=== PATIENT | female | born 1965 | race Caucasian/White ===

== ENCOUNTER 2025-03-27 08:12 | Emergency (ER) | payer BC, SELFPAY ==
--- OUTSIDE RECORDS SUMMARY | 2023-03-09 07:54 | XMS_ITS | Encounter Summary ---
Author Organization [facility] Healthcare Address [address] [place] [address] Care Team Providers Care Plant Safety Leader Name Role Phone Adolfo Arroyo MD Primary Care Provider [phone] Encounter Details Date Type Department Care Team (Late st Contact Info) Description 03/09/2023 7:54 AM CDT Hospital Encounter [facility] Medical Group Orthopedics and Sports Medicine [address] [place] [id number] Social History Tobacco Use Types Packs/Day Years Used Date Smoking Tobacco: Every Day Cigarettes Smokeless Tobacco: Former Comments:0.5 ppd Alcohol Use Standard Drinks/Week Comments Yes 0 (1 standard drink = 0.6 oz pur e alcohol) AUDIT-C Answer Date Recorded Q1: How often do you have a drink containing alc ohol? Monthly or less 03/20/2024 Q2: How many drinks containi ng alcohol do you have on a typical day when you are drinking? 1 or 2 03/20/2024 Q3: How often do you have si x or more drinks on one occasion? Never 03/20/2024 Personal Safety Answer Date Recorded Have you ever been in or are you currently in a harmful physical or emotional relationship or is someone making you feel afraid or unsafe? Denies 03/27/2024 Comments No Sex and Gender Information Value Date Recorded Sex Assigned at Not on file Legal Sex Female 9:05 AM EDGE GLUER Gender Identity Not on file Sexual Orientation Not on file documented as of this encounter Functional Status * AUDIT-C Score Answer Date of Assessment Author 1 03/20/2024 12:39 PM BYALEET Coretta Gamboa RN * Question Answer Date of Assessment Author Q1: How often do you have a drink containing alcohol? Monthly or less 03/20/2024 12:39 PM BAYLEET Coretta Gamboa, ROSALBA Q2: How many drinks containing alcohol do you have on a typical day when you are drinking? 1 or 2 03/20/2024 12:39 PM BAYLEET Tess Gamboa RN Q3: How often do you have six or more drinks on one occasion? Never 03/20/2024 12:39 PM BAYLEET Coretta Gamboa RN documented as of this encounter Plan of Treatment Not on file documented as of this encounter Procedures Procedure Name Priority Date/Time Associated Diagnosis Comments XR KNEE RIGHT 4 OR MORE VIEWS Schedule Routine, Read Routine (OP Routine) 03/09/2023 1:42 PM CDT Primary osteoarthritis of right knee documented in this encounter Results * XR Knee Right 4 or More Views (03/09/2023 1:42 PM CDT) Anatomical Region Laterality Modality Lower Extremities, Knee Right Digital Radiography Narrative 03/09/2023 1:42 PM CDT Four views of the right knee are negative for fracture dislocation or osseous lesion. Well-maintained medial and lateral joint spaces are noted with very minimal arthritic changes noted in the lateral joint line. Moderate patellofemoral compartment arthritic changes are noted. To [facility] XR PROCEDURES Final Res ult documented in this encounter Visit Diagnoses Not on filedocumented in this encounter Care Teams Plant Safety Leader Relationship Specialty Start Date End Date Adolfo Arroyo MD [address] [place] [address] DR ZACARIAS B [address] [address] PCP - General Family Medicine 03/30/22 documented as of this encounter
--- OUTSIDE RECORDS SUMMARY | 2023-03-09 07:54 | XMS_ITS | Encounter Summary ---
Author Organization [facility] Healthcare Address [address] [place] [address] Care Team Providers Care Organic Preparation Technician Name Role Phone Adolfo Arroyo MD Primary Care Provider [phone] Reason for Visit * Diagnostic Imaging (Routine) - Closed Specialty Diagnoses / Procedures Referred By Cain lieberman Referred To Contact Diagnoses Right knee pain, unspecified chronicity Procedures XR Pelvis 1 or 2 Views To [place] PA [address] [place] [address] [address] [place] [address] Phone: tel: fax: Referral ID Status Reason Start Date Expiration Date Visits Re quested Visits Authorized [id number] Closed 03/09/2023 04/07/2024 1 1 Encounter Details Date Type Department Care Team (Late st Contact Info) Description 03/09/2023 7:54 AM CDT Hospital Encounter [facility] Medical Group Orthopedics and Sports Medicine [address] [facility] [address] [place] [id number] Social History Tobacco Use Types Packs/Day Years [...] on file Legal Sex Female 9:05 AM RACKET STRINGER Gender Identity Not on file Sexual Orientation Not on file documented as of this encounter Functional Status * AUDIT-C Score Answer Date of Assessment Author 1 03/20/2024 12:39 PM Coretta Bucio RN * Question Answer Date of Assessment Author Q1: How often do you have a drink containing alcohol? Monthly or less 03/20/2024 12:39 PM Coretta Bucio RN Q2: How many drinks containing alcohol do you have on a typical day when you are drinking? 1 or 2 03/20/2024 12:39 PM Tess Bucio RN Q3: How often do you have six or more drinks on one occasion? Never 03/20/2024 12:39 PM Coretta Bucio RN documented as of this encounter Plan of Treatment Not on file documented as of this encounter Procedures Procedure Name Priority Date/Time Associated Diagnosis Comments XR PELVIS 1 OR 2 VIEWS Schedule Routine, Read Routine (OP Routine) 03/09/2023 1:41 PM CDT Primary osteoarthritis of right knee documented in this encounter Results * XR Pelvis 1 or 2 Views (03/09/2023 1:41 PM CDT) Anatomical Region Laterality Modality Body, Pelvis N/A Digital Radiogra phy Narrative 03/09/2023 1:41 PM CDT X-ray of the pelvis viewed and interpreted. There is no evidence of fracture, subluxation. There is no aggressive bone lesion. There is no radiopaque foreign body. There are no significant degenerative changes. To [facility] XR PROCEDURES Final Res ult documented in this encounter Visit Diagnoses Not on filedocumented in this encounter Care Teams Organic Preparation Technician Relationship Specialty Start Date End Date Adolfo Arroyo MD [address] [facility] [address] ZACARIAS B [facility] [address] [place] [address] PCP - General Family Medicine 03/30/22 documented as of this encounter
[2025-03-27 08:20] VITALS: BP 135/84; PULSE 74; RESP 16; TEMP 36.6; O2SAT 99
--- OUTSIDE RECORDS SUMMARY | 2025-03-27 08:24 | XMS_ITS | Encounter Summary ---
Author Organization [facility] Address [address] [place] [address] Phone Care Team Providers Care Health Services Administrator Name Role Phone Adolfo Arroyo MD Primary Care Provider Mikayla Aceves APRN, RIVET TAPPING MACHINE OPERATOR Unavailable Zeus Shaw MD Unavailable Reason for Visit * Reason Comments Medication Refill Encounter Details Date Type Department Care Team (Late st Contact Info) Description 08/21/2023 Refill [facility] - Gastroenterology [facility] [address] [place] [address] Mikayla Aceves APRN, RIVET TAPPING MACHINE OPERATOR [address] [place] [address] Medication Refill Social History Tobacco Use Types Packs/Day Years Used Date Smoking Tobacco: Every Day Cigarettes Alcohol Use Standard Drinks/Week Comments Not Currently 0 (1 standard drink = 0.6 oz pur e alcohol) Comments No Sex and Gender Information Value Date Recorded Sex Assigned at Not on file Legal Sex Female 7:36 PM CDT Gender Identity Not on file Sexual Orientation Not on file documented as of this encounter Miscellaneous Notes * Telephone Encounter - Pari Perez RN - 08/21/2023 12:02 PM CDT Medication refilled and signed per [facility] chronic medication standing order for pediatric and adult patients. documented in this encounter Plan of Treatment Not on file documented as of this encounter Visit Diagnoses Diagnosis Epigastric pain Abdominal pain, epigastric Esophageal dysphagia Dysphagia, pharyngoesophageal phase documented in this encounter Care Teams Health Services Administrator Relationship Specialty Start Date End Date Adolfo Arroyo MD 4 [facility] [address] [place] [address] PCP - General Family Medicine 05/29/23 Mikayla Aceves APRN, RIVET TAPPING MACHINE OPERATOR [address] [place] [address] Nurse Practitioner Advanced Practice Nurse 05/24/23 Zeus Shaw MD [address] [address] Consulting Physician Colon and Rectal Surgery 12/03/23 documented as of this encounter
--- OUTSIDE RECORDS SUMMARY | 2025-03-27 08:24 | XMS_ITS | Encounter Summary ---
Author Organization [facility] Healthcare Address [address] [place] [address] Care Team Providers Care Farmworker General Name Role Phone Adolfo Arroyo MD Primary Care Provider [phone] Rober Galloway Unavailable [phone] Encounter Details Date Type Department Care Team (Late st Contact Info) Description 10/24/2019 Telephone [facility] [address] [place] [address] Marlys Pillai RDMS Social History Tobacco Use Types Packs/Day Years Used Date Smoking Tobacco: Former Smokeless Tobacco: Former Comments:Smoking History Pac ks/day: 1 Packs Alcohol Use Standard Drinks/Week Comments Yes 0 (1 standard drink = 0.6 oz pur e alcohol) Comments No Sex and Gender Information Value Date Recorded Sex Assigned at Not on file Legal Sex Female 9:05 AM PETROLEUM LABORATORY TECHNICIAN Gender Identity Not on file Sexual Orientation Not on file documented as of this encounter Plan of Treatment Not on file documented as of this encounter Visit Diagnoses Not on filedocumented in this encounter Additional Health Concerns Infection Onset Date Last Indicated Resolved Time COVID: Suspected 02/11/2021 02/11/2021 02/11/2021 8:48 PM CDT documented as of this encounter Care Teams Farmworker General Relationship Specialty Start Date End Date Adolfo Arroyo MD [address] [place] [address] DR ZACARIAS B [address] [address] PCP - General Family Medicine 03/30/22 Rober Galloway PA [address] [facility] [address] Orthopedic Surgery 03/27/24 documented as of this encounter
--- OUTSIDE RECORDS SUMMARY | 2025-03-27 08:24 | XMS_ITS | Encounter Summary ---
Author Organization [facility] Address [address] [place] [address] Care Team Providers Care Chaperone Name Role Phone Adolfo Arroyo MD Primary Care Provider + Encounter Details Date Type Department Care Team (Late st Contact Info) Description 03/25/2025 External Device Data [facility] ABSTRACTION Provider, Abstract NO ADDRESS ON FILE Social History Tobacco Use Types Packs/Day Years Used Date Smoking Tobacco: Every Day Cigarettes 0.3 40.8 Started: 1984 Comments Unknown Sex and Gender Information Value Date Recorded Sex Assigned at Not on file Legal Sex Female 9:27 AM LACE MENDER Gender Identity Not on file Sexual Orientation Not on file documented as of this encounter Plan of Treatment Not on file documented as of this encounter Visit Diagnoses Not on filedocumented in this encounter Care Teams Chaperone Relationship Specialty Start Date End Date Adolfo Arroyo MD [address] [place] [phone] PCP - General Family Practice 07/11/23 documented as of this encounter
--- OUTSIDE RECORDS SUMMARY | 2025-03-27 08:24 | XMS_ITS | Encounter Summary ---
Author Organization [facility] Healthcare Address [address] [place] [address] Care Team Providers Care Warehouse Manager Name Role Phone Adolfo Arroyo MD Primary Care Provider [phone] Rober Galloway Unavailable [phone] Reason for Visit * Reason Onset Date Comments Scheduling Appointments 04/12/2021 Confirmi ng mammogram appt Encounter Details Date Type Department Care Team (Late st Contact Info) Description 04/12/2021 Telephone [facility] [address] [place] [id number] Maggie Trujillo, Scheduling Appointments (Confirming mammogram appt) Social History Tobacco Use Types Packs/Day Years Used Date Smoking Tobacco: Every Day Cigarettes Smokeless Tobacco: Former Comments:0.5 ppd Alcohol Use Standard Drinks/Week Comments Yes 0 (1 standard drink = 0.6 oz pur e alcohol) AUDIT-C Answer Date Recorded Q1: How often do you have a drink containing alc ohol? Monthly or less 02/11/2021 Average Number of Drinks Not on file 021 Frequency of Binge Drinking Not on file 01/26 Comments No Sex and Gender Information Value Date Recorded Sex Assigned at Not on file Legal Sex Female 9:05 AM SINGING TEACHER Gender Identity Not on file Sexual Orientation Not on file documented as of this encounter Plan of Treatment Not on file documented as of this encounter Visit Diagnoses Not on filedocumented in this encounter Care Teams Warehouse Manager Relationship Specialty Start Date End Date Adolfo Arroyo MD [address] [facility] [address] [place] [address] PCP - General Family Medicine 03/30/22 Rober Galloway PA [address] [facility] [address] [place] [address] Orthopedic Surgery 03/27/24 documented as of this encounter
--- OUTSIDE RECORDS SUMMARY | 2025-03-27 08:24 | XMS_ITS | Clinical Summary ---
Author Organization [facility] Address [address] [place] [address] Care Team Providers Care Student Development Specialist Name Role Phone Adolfo Arroyo MD Primary Care Provider + Allergies Active Allergy Reactions Criticality Noted Date Comments Codeine Unknown 07/11/2023 Medications acetaminophen (TYLENOL) 500 mg tablet Take 500 mg by mouth every 6 hours as needed. Active QUEtiapine (SEROquel) 50 mg tablet Take 50 mg by mouth 2 times daily. Active losartan (COZAAR) 50 mg tablet Take 50 mg by mouth daily. Active Active Problems No known active problems Encounters Date Type Department Care Team Description 03/25/2025 External Device Data [facility] ABSTRACTION Provider, Abstract 03/25/2025 External Device Data [facility] ABSTRACTION Provider, Abstract 12/30/2024 External Device Data [facility] ABSTRACTION Provider, Abstract from Last 3 Months Social History Tobacco Use Types Packs/Day Years Used Date Smoking Tobacco: Every Day Cigarettes 0.3 40.8 Started: 1984 Comments Unknown Sex and Gender Information Value Date Recorded Sex Assigned at Not on file Legal Sex Female 9:27 AM CHILDRENS CLUB ATTENDANT Gender Identity Not on file Sexual Orientation Not on file Last Filed Vital Signs Vital Sign Reading Time Taken Comments Blood Pressure 128/95 04/21/2024 10:47 AM CHILDRENS CLUB ATTENDANT Pulse 94 04/21/2024 10:47 AM CHILDRENS CLUB ATTENDANT Temperature - - Respiratory Rate 18 04/21/2024 10:47 AM CHILDRENS CLUB ATTENDANT Oxygen Saturation 100% 04/21/2024 10:47 AM CHILDRENS CLUB ATTENDANT Inhaled Oxygen Concentration - - Weight 81.2 kg (179 lb) 08/28/2023 7:00 AM CDT Height 162.6 cm (5' 4) 08/28/2023 7:00 AM CDT Body Mass Index 30.73 08/28/2023 7:00 AM CDT Plan of Treatment Health Maintenance Due Date Last Done Comments DTAP/TDAP/TD VACCINES (1 - Tdap) 1984 HPV/Cotest (21-29) 1986 CERVICAL CANCER SCREENING 1995 HPV/Cotest (30-65) 1995 PAP SMEAR 1995 BREAST CANCER SCREENING 2005 COLORECTAL SCREENING 2010 Colorectal Cancer Screening 2010 FIT-DNA Q 3 years 2010 FIT/FOBT Q 1 year 2010 Flex Sig/CT Colonography Q 5 years 2010 ZOSTER VACCINE (1 of 2) 2015 INFLUENZA VACCINE (#1) 2024 RSV VACCINE (60+ or ) (1 - 1-dose 75+ series) 2040 HEPATITIS B VACCINES Aged Out No long er eligible based on patient's age to complete this topic [place] [address] HEALTH PLAN [place] Care Teams Student Development Specialist Relationship Specialty Start Date End Date Adolfo Arroyo MD [address] [phone] PCP - General Family Practice 07/11/23
--- OUTSIDE RECORDS SUMMARY | 2025-03-27 08:24 | XMS_ITS | Encounter Summary ---
Author Organization [facility] Healthcare Address [address] [place] [address] Care Team Providers Care Compliance Officer Name Role Phone Adolfo Arroyo MD Primary Care Provider [phone] Rober Galloway Unavailable [phone] Encounter Details Date Type Department Care Team (Late st Contact Info) Description 10/22/2019 Telephone [facility] [address] [place] [address] Flower Wilder RN Social History Tobacco Use Types Packs/Day Years Used Date Smoking Tobacco: Former Smokeless Tobacco: Former Comments:Smoking History Pac ks/day: 1 Packs Alcohol Use Standard Drinks/Week Comments Yes 0 (1 standard drink = 0.6 oz pur e alcohol) Comments No Sex and Gender Information Value Date Recorded Sex Assigned at Not on file Legal Sex Female 9:05 AM HOSPICE PLAN ADMINISTRATOR Gender Identity Not on file Sexual Orientation Not on file documented as of this encounter Plan of Treatment Not on file documented as of this encounter Visit Diagnoses Not on filedocumented in this encounter Additional Health Concerns Infection Onset Date Last Indicated Resolved Time COVID: Suspected 02/11/2021 02/11/2021 02/11/2021 8:48 PM CDT documented as of this encounter Care Teams Compliance Officer Relationship Specialty Start Date End Date Adolfo Arroyo MD [address] [place] [address] [address] ZACARIAS B [facility] [address] [place] [address] PCP - General Family Medicine 03/30/22 Rober Galloway PA [address] [place] [address] Orthopedic Surgery 03/27/24 documented as of this encounter
--- OUTSIDE RECORDS SUMMARY | 2025-03-27 08:24 | XMS_ITS | Encounter Summary ---
Author Organization [facility] Address [address] [place] [address] Phone Care Team Providers Care Nuclear Fuels Reclamation Engineer Name Role Phone Ellie Beltran APRN Primary Care Provider Adolfo Arroyo MD Primary Care Provider [phone] Mikayla Aceves APRN, CNP Unavailable Zeus Shaw MD Unavailable Reason for Referral * Radiology Services (Routine) - Closed Specialty Diagnoses / Procedures Referred By Contac t Referred To Contact Radiology Diagnoses Encounter for screening mammogram for malignant neoplasm of breast Procedures KALLI SCREENING BILATERAL DIGITAL W CAD W RYNE Taitana Hoffman APRN, CNP Phone: tel: fax: Referral ID Status Reason Start Date Expiration Date Visits Re quested Visits Authorized [id number] Closed 03/06/2023 1 1 Encounter Details Date Type Department Care Team (Late st Contact Info) Description 03/06/2023 Transcribe Orders [facility] Central Scheduling [address] [place] [address] Tatiana Hoffman V, CLINICAL OPERATIONS MANAGER, ALUMNI RELATIONS MANAGER 4 [facility] [address] [place] [address] Encounter for screening mammogram for malignant neoplasm of breast (Primary Dx) Social History Tobacco Use Types Packs/Day Years Used Date Smoking Tobacco: Every Day Cigarettes Alcohol Use Standard Drinks/Week Comments Yes 0 (1 standard drink = 0.6 oz pure alcohol) OCCASIONALLY AT DINNER WITH FRIENDS Comments No Sex and Gender Information Value Date Recorded Sex Assigned at Not on file Legal Sex Female 7:36 PM CDT Gender Identity Not on file Sexual Orientation Not on file documented as of this encounter Plan of Treatment Scheduled Orders Name Type Priority Associated Diagnoses Orde r Schedule KALLI SCREENING BILATERAL DIGITAL W CAD W RYNE Imaging Routine Encounter for screening mammogram for malignant neoplasm of breast Expected: 03/06/2023, Expires: 03/06/2024 documented as of this encounter Visit Diagnoses Diagnosis Encounter for screening mammogram for malignant neoplasm of breast- Primary Other screening mammogram documented in this encounter Care Teams Nuclear Fuels Reclamation Engineer Relationship Specialty Start Date End Date Ellie Beltran APRN [address] [facility] [address] [place] [address] PCP - General Family Medicine 05/30/19 05/28/23 Adolfo Arroyo MD [address] [facility] [address] [place] [address] PCP - General Family Medicine 05/29/23 Mikayla Aceves CLINICAL OPERATIONS MANAGER, ALUMNI RELATIONS MANAGER [address] [place] [address] Nurse Practitioner Advanced Practice Nurse 05/24/23 Zeus Shaw MD #[address] [place] [address] Consulting Physician Colon and Rectal Surgery 12/03/23 documented as of this encounter
--- OUTSIDE RECORDS SUMMARY | 2025-03-27 08:24 | XMS_ITS | Encounter Summary ---
Author Organization [facility] Healthcare Address [address] [place] [address] Care Team Providers Care Water Filterer Name Role Phone Adolfo Arroyo MD Primary Care Provider [phone] Rober Galloway Unavailable [phone] Reason for Visit * Auth/Cert (Routine) Specialty Diagnoses / Procedures Referred By Contac t Referred To Contact Diagnoses Encounter for screening colonoscopy Encounter for screening colonoscopy [Z12.11] Procedures ID COLONOSCOPY FLX DX W/COLLJ SPEC WHEN PFRMD COLONOSCOPY Referral ID Status Reason Start Date Expiration Date Visits Re quested Visits Authorized [id number] 1 1 Encounter Details Date Type Department Care Team (Late st Contact Info) Description 06/11/2024 Hospital Encounter [facility] [address] [place] [address] Luciana Gonzalez MD [address] [place] [id number] Social History Tobacco Use Types Packs/Day Years [...] file Legal Sex Female 9:05 AM EDGE PLUGGER Gender Identity Not on file Sexual Orientation [...] one occasion? Never 03/20/2024 12:39 PM Coretta Buico RN documented as of this encounter Plan of Treatment Not on file documented as of this encounter Visit Diagnoses Diagnosis Encounter for screening colonoscopy- Primary documented in this encounter Admitting Diagnoses Diagnosis Encounter for screening colonoscopy documented in this encounter Care Teams Water Filterer Relationship Specialty Start Date End Date Adolfo Arroyo MD [address] [facility] [address] [place] [address] PCP - General Family Medicine 03/30/22 Rober Galloway PA [address] [place] [address] [address] [place] [address] Orthopedic Surgery 03/27/24 documented as of this encounter
--- OUTSIDE RECORDS SUMMARY | 2025-03-27 08:24 | XMS_ITS | Encounter Summary ---
Author Organization [facility] Address [address] [place] [address] Care Team Providers Care Senior Financial Accountant Name Role Phone Adolfo Arroyo MD Primary [...] on file Legal Sex Female 9:27 AM BRIDGE REPAIR CREW PERSON Gender Identity Not on file Sexual Orientation Not on file documented as of this encounter Plan of Treatment Not on file documented as of this encounter Visit Diagnoses Not on filedocumented in this encounter Care Teams Senior Financial Accountant Relationship Specialty Start Date End Date Adolfo Arroyo MD [address] [place] [phone] PCP - General Family Practice 07/11/23 documented as of this encounter
--- OUTSIDE RECORDS SUMMARY | 2025-03-27 08:25 | XMS_ITS | Clinical Summary ---
Author Organization [facility] Address [address] [place] [address] Care Team Providers Care Imaging Clerk Name Role Phone Adolfo Arroyo MD Primary Care Provider [phone] Rober Galloway Unavailable [phone] Allergies Active Allergy Reactions Criticality Noted Date Comments Bupropion Anxiety,Agitation Medium 09/25/2023 Codeine Other (See comments) Low 03/17/2017 TOXIC POISONING Prednisone Swelling Medium 03/17/2017 Vancomycin Itching Medium 02/11/2021 Medications VENTOLIN HFA 90 mcg/actuation inhaler INL 2 PFS PO Q 4 H 2 03/25/20 17 Active QUEtiapine XR (SEROquel XR) 50 mg tablet extended release 24 hrIndications:Bipo lar Disorder in Remission Take 1 tablet (50 mg total) by mouth nightly Active albuterol 2.5 mg /3 mL (0.083 %) nebulizer solutionIndication s:Acute Asthma Attack Take 3 mL (2.5 mg total) by nebulization every 6 (six) hours as needed for wheezing or shortness of breath Active cetirizine (ZyrTEC) 10 mg tablet Take 1 tablet (10 mg total) by mouth daily as needed for allergies 30 tablet 03/30/20 22 Active hydrocortisone 1 % cream Apply to affected area 2 times daily 15 g 11/03/20 22 Active losartan (COZAAR) 50 mg tablet Take 1 tablet (50 mg total) by mouth daily 02/20/20 23 Active ergocalciferol (VITAMIN D) 50,000 unit capsule Take 1 capsule (50,000 Units total) by mouth once a week 09/24/19 24 Active potassium gluconate 595 mg (99 mg) tablet Take 1 tablet (595 mg total) by mouth daily Active cholecalciferol (VITAMIN D-3) 1,000 unit capsule Take 1 capsule (1,000 Units total) by mouth daily Active aspirin 81 mg enteric coated tabletIndications: prevention of thrombosis Take 1 tablet (81 mg total) by mouth 2 (two) times a day for 14 days 28 tablet 03/27/20 24 Active celecoxib (CeleBREX) 200 mg capsule Take 1 capsule (200 mg total) by mouth 2 (two) times a day for 14 days 28 capsule 03/27/20 24 Active senna-docusate (PERICOLACE) 8.6-50 mg Take 1 tablet by mouth 2 (two) times a day as needed for constipation 60 tablet 1 03/27/20 24 Active ondansetron ODT (ZOFRAN-ODT) 4 mg disintegrating tablet Take 1 tablet (4 mg total) by mouth every 6 (six) hours as needed for nausea or vomiting 20 tablet 03/28/20 24 Active Additional Information Patient not taking.Reported on 05/19/2024 amoxicillin (AMOXIL) 500 mg tablet/capsule Take 4 tablets one hour prior to dental procedure 4 tablet/capsu le 1 06/10/19 25 Active traMADoL (ULTRAM) 50 mg tablet Take 1 tablet (50 mg total) by mouth every 6 (six) hours as needed for pain for pain 28 tablet 07/03/19 25 Active Active Problems Problem Noted Date Diagnosed Date Status post total knee replacement, right 2023 Acute cystitis 09/25/2023 Chronic obstructive lung disease 09/25/2023 Insomnia 09/25/2023 Mixed anxiety and depressive disorder 09/25/2023 Obesity 09/25/2023 Upper respiratory infection 09/25/2023 Encounter for screening colonoscopy 09/17/2023 Cellulitis of right lower extremity 02/11/2021 Scoliosis of lumbar spine 01/05/2017 Infection due to Streptococcus pneumoniae 2012 Overview (08/30/2016): S. pneumoniae Bipolar I disorder ([facility]) 06/20/2012 Overview (08/30/2016): Bipolar 1 disorder Asthma 06/20/2012 Overview (08/31/2016): Asthma Osteoarthritis 06/20/2012 Overview (08/31/2016): Osteoarthritis Gastroesophageal reflux disease 06/20/2012 Overview (08/31/2016): GERD (gastroesophageal reflux disease) Migraine 06/20/2012 Overview (08/31/2016): Migraines Systemic lupus erythematosus ([facility]) 3 Overview (08/31/2016): Lupus Attention deficit disorder (ADD) without hyperac tivity 06/20/2012 Overview (09/02/2016): ADD (attention deficit disorder) Immunizations Immunization Administration Dates Next Due Influenza, Quadrivalent, Split, Intramuscular Influenza, Quadrivalent, Spl it, Preservative Free, Intramuscular 04/05/2021 Influenza, Trivalent, IM (MDV) 04/01/2015 Surgical History Surgery Date Site/Laterality Comments SECTION BREAST CYST ASPIRATION TONSILLECTOMY as a teenager TUBAL LIGATION CHOLECYSTECTOMY DILATION AND CURETTAGE OF UTERUS Medical History Medical History Date Comments Anemia Asthma Depression Congenital heart disease MVP Heart murmur Chronic bronchitis (HCC) GERD (gastroesophageal reflux disease) Irritable bowel syndrome Abnormal findings on esophagogastroduodenoscopy (EGD) esophageal ulcers Family History Medical History Relation Name Comments Diabetes Brother Heart disease Brother pacemaker Brother Cancer Father Diabetes Father Heart disease Father Alzheimer's disease Maternal Grandmother Stroke Maternal Grandmother Alzheimer's disease Mother Diabetes Mother Heart disease Mother Stroke Mother aortic valve replaced Mother Breast cancer Mother's Sister Alzheimer's disease Other multiple family members Other Relation Name Status Comments Brother Father Maternal Grandmother Mother Mother's Sister Other Social History Tobacco Use Types Packs/Day Years Used Date Smoking Tobacco: Every Day Cigarettes Smokeless Tobacco: Former Tobacco Cessation:Ready to Q uit: Yes; Counseling Given: No Comments:0.5 ppd Alcohol Use Standard Drinks/Week Comments [...] on file Legal Sex Female 9:05 [employer] Gender Identity Not on file Sexual Orientation Not on file Obstetrics History Para Term AB IAB SAB Ectopic Multiple Livin g Live Births 4 4 4 Date Outcome GA Total Labor Labor/2nd/3rd Weight Sex Type Anes PTL Irene A1 A5 Name Clin Term Term Term Term Last Filed Vital Signs Vital Sign Reading Time Taken Comments Blood Pressure 110/72 05/19/2024 10:24 AM [employer] Pulse 95 05/19/2024 10:24 AM [employer] Temperature 36.3 C (97.3 F) 03/27/2024 3:55 PM CDT Respiratory Rate 18 03/27/2024 3:01 PM CDT Oxygen Saturation 100% 03/27/2024 3:55 PM CDT Inhaled Oxygen Concentration - - Weight 68.9 kg (152 lb) 05/19/2024 10:24 AM [employer] Height 160 cm (5' 3) 05/19/2024 10:24 AM [employer] Body Mass Index 26.93 05/19/2024 10:24 AM [employer] Plan of Treatment Health Maintenance Due Date Last Done Comments Cervical Cancer Screening 1965 Colon Cancer Screening-Colonoscopy 1965 Depression Screening 1965 Hepatitis C Screening 1965 DTaP/Tdap/Td Vaccine (1 - Tdap) 1976 Hepatitis B Screening 1983 Regular Well Visit/Exam 18-64 1983 Pneumococcal vaccine <65 (1 of 2 - PCV) 1984 Zoster Vaccine (1 of 2) 2015 Breast Cancer Screening-Mammogram 03/10/2024 03/10/2023, 03/10/2023, 04/13/2021, Additional history exists Influenza Vaccine (#1) 2025 , 04/16/2019, 04/01/2015 Medical Devices Implanted Type Area Pulper Operator Device Identifier Shelf Expiration Date Model / Serial / Lot [employer] Attune Fb Tib Base Sz 4 Por [id number] - [id number] Implanted:Qty: 1 on 03/27/2024 by Jose Alves MD at [facility] Right: Knee [employer] 10/25/2033 [id number] / / [id number] [employer] Attune Cruciate Retain Cementless Knee Right 5 Narrow Component [id number] - [id number] Implanted:Qty: 1 on 03/27/2024 by Jose Alves MD at [facility] Right: Knee [employer] 01/25/2034 [id number] / / [id number] [employer] Insert Tibial Knee Fixed Rm Posterior Stabilized Attune 6mm Size 5 Polyethylene [id number] - [id number] Implanted:Qty: 1 on 03/27/2024 by Jose Alves MD at [facility] Right: Knee [employer] 11/25/2031 [id number] / / [id number] Procedures Procedure Name Priority Date/Time Associated Diagnosis Comments SCREENING MAMMOGRAM BILATERAL W ABRAHAM Schedule Routine, Read Routine (OP Routine) 03/10/2023 12:38 PM CDT Encounter for screening from Last 3 Months or Most Recently Relevant to Health Maintenance Results * Screening Mammogram Bilateral W Abraham (03/10/2023 12:38 PM CDT) Anatomical Region Laterality Modality Breast Bilateral Mammography 03/10/2023 1:31 PM CDT Impressions 03/10/2023 1:31 PM CDT There is no mammographic evidence of malignancy. A 1 year screening mammogram is recommended. BI-RADS: 1 - Negative. The patient has been or will be contacted. The patient will be entered into a reminder system with a target due date of 1 year for her next mammogram. Electronically signed by: MARCO SAAVEDRA Narrative 03/10/2023 1:31 PM CDT EXAMINATION: SCREENING MAMMOGRAM BILATERAL W ABRAHAM ORDERING HEALTHCARE PROVIDER: DEIDRE RODRIGUES HISTORY: Routine screening mammography. COMPARISON: 04/13/2021, 01/08/2020, 10/09/2019, 07/22/2019. TECHNIQUE: CC and MLO views of both breasts were obtained with digital technique using digital breast tomosynthesis with C view. Computer aided detection was utilized. FINDINGS: DENSITY: The breasts are almost entirely fatty. BREASTS: There is no new suspicious finding in either breast on mammogram. us Deidre Rodrigues [employer]INT [employer]OW[employer] IMG MAMMO PROCEDURES Final R esult from Last 3 Months or Most Recently Relevant to Health Maintenance Insurance [employer] OOS [employer] OOS BLUE ACC CHOICE OOS Advance Directives For more information, please contact: [phone] * Full Code (Latest Code Status on File) Date Activated Date Inactivated Comments 03/27/2024 12:29 PM 03/27/2024 8:16 PM * Full Code Date Activated Date Inactivated Comments 02/11/2021 10:51 PM 02/13/2021 3:32 PM Care Teams Imaging Clerk Relationship Specialty Start Date End Date Adolfo Arroyo MD [address] [facility] [address] [place] [address] PCP - General Family Medicine 03/30/22 Rober Galloway PA [address] [place] [address] [address] [place] [address] Orthopedic Surgery 03/27/24
--- NOTE | 2025-03-27 08:33 | ED_ITS ---
HPI - Skin/Abscess/Foreign Bdy General Chief complaint: Skin/Abscess/Foreign Body Stated complaint: Rash all over Time Seen by Provider: 03/27/25 08:33 Source: patient, RN notes reviewed and old records reviewed Mode of arrival: ambulatory Limitations: no limitations History of Present Illness HPI narrative: 60-year-old female presents to [facility] with complaints of rash on bilateral arms, hands and back for about 2 months which is itchy. Patient reports that they start out with small blisters and then she scratches them and they scab over. She states that she sits outside of house on her porch on materi al covered bench and neighbor's cats have taken over her porch and she thinks that they could be flea bites. No one else in household has rash and no area in perineum area and are not increasingly itchy at night. 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 MD complaint: rash Onset (ago): month(s) (approximately 2) Location: neck, back, LUE, RUE, L hand and R hand Severity: moderate Quality: pruritic Treatments prior to arrival: Benadryl and other (aloe vera gel, dial soap, cortisone cream and oatmeal bath) Related Data Home Medications ?Medication ?Instructions ?Recorded ?Confirmed ?Last Taken ?Type quetiapine .ROUTE 03/27/25 Unknown His tory Allergies Allergy/AdvReac Type Severity Reaction Status Date / Time codeine Allergy Unknown Unknown Verified 03/27/25 08:27 Sulfa (Sulfonamide Allergy Unknown Unknown Verified 03/27/25 08:27 Antibiotics) Review of Systems Review of Systems: CONSTITUTIONAL: Denies fever, chills, or sweats. CARDIOVASCULAR: Denies chest pain, palpitations, or edema. RESPIRATORY: Denies cough or dyspnea. SKIN: Reports rash on arms,neck and back which starts she reports out like a blister then she scratches them and they scab,reports she thinks they could be flea bites from neighbors cats. MUSCULOSKELETAL: Denies joint pain or myalgia. NEUROLOGIC: Denies headache, numbness, or weakness. All systems reviewed & are unremarkable except as noted in HPI and below PMFSH Past Medical History Medical History (Updated 03/27/25 @ 08:54 by Bess Morfin APRN) Endometriosis Depression Surgical History Surgical History (Updated 03/27/25 @ 08:54 by Bess Morfin APRN) Hx of tonsillectomy History of right knee joint replacement H/O section History of cholecystectomy Social History Social History (Updated 03/27/25 @ 08:54 by Bess Morfin APRN) Smoking status: Current every day smoker Tobacco type: cigarettes Alcohol intake: unknown Substance use: unknown Living arrangements: with family Gender identity (if verbalized by the patient): Female Comments At time of signature, agree with nursing past medical, surgical, social and family history. There is no relevant family history pertinent to the presenting complaint Exam Narrative: GENERAL: Well-appearing, well-nourished, and in no acute distress. HEAD: Normocephalic, atraumatic. EYES: PERRLA, conjunctivae clear, and EOMI. ENT: Mucous membranes moist. Oropharynx without edema, erythema or lesions. NECK: Supple. No lymphadenopathy CHEST: Clear to auscultation. No respiratory distress. SAO2 99% on room air HEART: Regular rate and rhythm. SKIN: Warm, dry.? Patches of red raised scab areas on bilateral arms, hands and neck without pustules noted, no drainage noted are itchy NEURO:? Alert and oriented x3. PSYCH: Normal mood and affect Course Course Emergency Course: Patient is aware of diagnosis, understands and agrees to treatment plan.? Anticipatory guidance given.? Patient agrees to follow-up as directed and is aware of reasons to seek care at the emergency department. Portions of this record may have been created with voice recognition software Level of Care: Express Care Visit Vital Signs Vital signs: Vital Signs Temperature 36.6 C 03/27/25 08:20 Pulse Rate 74 03/27/25 08:20 Respiratory Rate 16 03/27/25 08:20 Blood Pressure 135/84 03/27/25 08:20 Pulse Oximetry 99 03/27/25 08:20 Oxygen Delivery Room Air 03/27/25 08:20 Temperature 36.6 C 03/27/25 08:20 Pulse Rate 74 03/27/25 08:20 Respiratory Rate 16 03/27/25 08:20 Blood Pressure 135/84 03/27/25 08:20 Pulse Oximetry 99 03/27/25 08:20 Oxygen Delivery Room Air 03/27/25 08:20 Reviewed MDM - Skin/Abscess/Foreign Bdy MDM Narrative Medical decision making narrative: Does not appear at this time to be erythema multiforme, bullous, SJS, TEN; no evidence at this time to suggest RMSF, endocarditis or Lyme disease; patient looks well, nontoxic and is tolerating oral intake; no neurologic signs or symptoms; no headache, photophobia or neck pain; afebrile; appropriate for initial outpatient treatment; discussed the importance of follow-up, patient agrees; question, viral exanthema, contact dermatitis, allergic dermatitis, eczema, urticaria, [ xx ]. No soft palate or uvula edema, no tongue, lip edema or other mucosal involvement, no respiratory compromise, no stridor, no wheezing, no wheezing, no history of syncope, no hypotension, no nausea, vomiting, or diarrhea.? Instructed patient to go to nearest ER immediately for any worsening symptoms including but not limited to: fever, spreading rash, pain, sore throat, headache, dizziness, chest pain, trouble breathing, or any symptoms concerning to the patient. Differential Diagnosis Differential diagnosis: Likely eczema, insect bites, contact dermatitis and other (pruritic rash) Medical Records Attestation: I reviewed the patient's medical records. Critical Care Time Critical Care Time Critical Care Time: No Discharge Plan Discharge Clinical Impression: Contact dermatitis Qualifiers: Contact dermatitis type: unspecified Contact dermatitis trigger: unspecified trigger Qualified Code(s): L25.9 - Unspecified contact dermatitis, unspecified cause Patient Disposition: Home Condition: Stable Instructions: Contact Dermatitis (ED) Additional Instructions: wash skin with liquid Dial soap twice daily and apply triamcinolone ointment to rash twice daily up to 14 days never apply to the face watch for any infection--redness, swelling, drainage, fevers Benadryl oral 25-50 mg every 6 hours as needed for itching do not drive while taking follow up with PCP in 7-10 days for a wound check recheck if develop fever, chills, increasing symptom Go to the ER if your symptoms become worse of if ANY new symptoms develop Pepcid 20 mg for 10 days Zyrtec 10 mg daily for 10 days If your symptoms persist, change or worsen significantly before you can contact your personal physician then please, without delay, go to the emergency department for further evaluation. Follow-up with PCP in 7-10 days or sooner if needed Follow up with PCP soon in regards to your blood pressure which is elevated above threshold for referral. Blood pressure above 120/80 may indicate pre- hypertension. 135/84 Patient Language: Hungarian Prescriptions: New triamcinolone acetonide 0.1 % ointment 1 applic topical BID Qty: 80 1RF cetirizine [Zyrtec] 10 mg tablet 10 mg PO DAILY Qty: 10 0RF famotidine [Pepcid] 20 mg tablet 20 mg PO DAILY Qty: 10 0RF No Action quetiapine [Seroquel] .ROUTE Follow-up/Referrals: Cruz,Adolfo Cage MD [Primary Care Provider] Time of Disposition: 08:46 Quality [place] Coma Scale Eyes: Open Verbal: Oriented and Alert Motor: Follows Commands [place] Coma Total Score: 15
== END 2025-03-27 08:51 | disposition home or self-care (01) ==
PROVIDERS: Emergency Provider Registered Nurse; PCP Family Medicine
DX: L25.9 Unspecified contact dermatitis, unspecified cause (principal); N80.9 Endometriosis, unspecified; F32.A Depression, unspecified; F17.210 Nicotine dependence, cigarettes, uncomplicated
CPT/HCPCS: 99213; G0463